=== PATIENT | female | born 2000 | race Caucasian/White ===

== ENCOUNTER 2022-02-11 04:18 | Inpatient (IN) | payer OTHER, SELFPAY ==
[2022-02-11] VITALS (17 sets, daily range): BP systolic 104–127; BP diastolic 47–79; PULSE 73–203; RESP 16; TEMP 36.4–37.2; O2SAT 82–99; BMI 29.9
[2022-02-11] MEDS: Lactated Ringers 1,000 ML 50 ML IV (06:00)
[2022-02-11 06:16] LABS: Bacteria 0 SEEN /hpf (None Seen); Mucous, Urine 0 SEEN /hpf (<or=2+); Red Blood Cells-Urine 0 SEEN /hpf (0-5); Squamous Epithelial Cells - UA 0 SEEN /hpf (5-10); White Blood Cells 0 SEEN /hpf (0-5)
[2022-02-11 06:19] LABS: Color, Urine Yellow (Yellow); Glucose, Dipstick Normal (Normal); Ketone-Dipstick Negative (Negative); Leukocyte Esterase-Dipstick Negative /ul (Negative); Nitrite-Dipstick Negative (Negative); Occult Blood-Urine 250 /ul (Negative); Protein-Dipstick 15 mg/dl (Negative); Specific Gravity, Urine 1.015 (1.002-1.030); Urine Bilirubin Dipstick Negative (Negative); Urine Clarity Clear (Clear); Urine Urobilinogen Normal (Normal)
[2022-02-11 06:21] LABS: Absolute Lymphocyte Count 2.03 X10^3/uL (0.83-4.51); Absolute Neutrophil Count 10.1 X10^3/uL (2.0-7.7); Basophil# 0.04 X10^3/uL; Basophil% 0.3 % (0-1); Eosinophil# 0.11 X10^3/uL; Eosinophils% 0.8 % (0-5); Hematocrit 38.1 % (37-47); Hemoglobin 13.1 g/dL (12.0-15.0); Lymphocyte # 2.03 X10^3/ul (0.83-4.51); Lymphocyte % 15.4 % (19-41); Mean Corp Hgb Conc 34.4 g/dL (32-36); Mean Corpuscular Hgb 30.8 pg (27.0-32.0); Mean Corpuscular Volume 89.6 fL (81-99); Mean Platelet Vol. 10.4 fl (6.2-12.0); Monocyte# 0.81 X10^3/uL; Monocyte% 6.1 % (0-10); NRBC Flagged by Analyzer 0 % (0-5); Neutrophil # 10.12 X10^3/uL (2.7-7.7); Neutrophil % 76.8 % (47-70); Platelet Count 245 K/mm3 (150-450); RBC Distribution Width CV 12.5 % (11.6-14.6); RBC Distribution Width SD 41.3 fl (35.1-43.9); Red Blood Count 4.25 M/mm3 (4.2-5.4); White Blood Count 13.2 K/mm3 (4.4-11.0)
[2022-02-11 06:30] LABS: Bedside Glucose 88 mg/dL (74-106)
[2022-02-11] MEDS: Oxytocin 15 Units/NS 250ml 15 UNITS/250 ML IV.SOLN 2 UNITS IV (06:30)
[2022-02-11 06:38] LABS: Amphetamine Urine VISTA NEGATIVE (<1000 ng/mL); Barbiturate Urine VISTA NEGATIVE (< 200 ng/mL); Benzodiazepine Urine VISTA NEGATIVE (< 200 ng/mL); Cocaine Urine VISTA NEGATIVE (< 300 ng/mL); Ecstacy Urine VISTA NEGATIVE (< 500 ng/mL); Methadone Urine VISTA NEGATIVE (< 300 ng/mL); PCP Urine VISTA NEGATIVE (< 25 ng/mL); THC Urine VISTA NEGATIVE (< 50 ng/mL); Vista UDS pH Range 7
--- NOTE | 2022-02-11 08:00 | PCM.HP.BLA ---
History and Physical Date of Admission: 02/11/22 Chief complaint: Contractions History present illness: 21-year-old G1, P0 at 40 weeks and 1 day with ARELY 02/10/2022 by LMP arrives from [facility] with contractions and variable decelerations. Patient uncomfortable with contractions. Denies headache, vision change, chest pain, shortness of breath, nausea vomit, right upper quadrant pain. is complicated by IUGR EFW 2135 g at 36 weeks less than the 10th percentile (no specific percentile given) AC less than 2.3 percentile, declines GBS, declined 1 hour GTT Obstetrical history: G1: Current Past medical history: None Medications: None Past surgical history: None Allergies: No known drug allergies Family history: History of cystic fibrosis with cousins Social history: Denies smoking, alcohol use, drug use Review of systems: Besides above pertinent positives a full review of systems was performed and found to be negative Physical exam: Vitals: Blood pressure 118/72 pulse 73 SPO2 98% on room air General: Normal-appearing no acute distress HEENT: Normocephalic/atraumatic cervical lymphadenopathy Cardiac/respiratory: No use of accessory muscles, nonlabored breathing Abdomen: Soft, nontender, gravid Extremities: No peripheral edema normal peripheral pulses Psych: Normal affect and demeanor nonpressured speech Labs: White blood cell count 13.2 hemoglobin 13.1 hematocrit 38.1% platelets 245 urine drug screen negative blood type a positive antibody negative. One Touch blood sugar 88 Assessment plan: 21-year-old G1, P0 40 weeks and 1 day from [facility] with IUGR less than the 3rd percentile arrived to [facility] with contractions noted to have variable decelerations and was transferred here. With IUGR less than the 3rd percentile induction should have pursued at 37 weeks. On arrival called by nursing instructed to monitor heart rate tracing and start Pitocin when possible to pursue induction as patient has 1 cm at [facility] since 02/10/22. On arrival status post nursing check patient now 5 cm. GBS unknown, for prophylactic penicillin. Educated patient on heart rate tracing, discussed AROM and IUPC with amnioinfusion. At this time patient wishes to continue hands-off approach. Educated patient on risk benefits alternatives. Patient to try nitrous oxide, very uncomfortable with contractions. If unimproved will then consider AROM and IUPC. All questions answered
[2022-02-11] MEDS: Methylergonovine 0.2 MG/ML Ampul IM (09:03)
--- NOTE | 2022-02-11 09:11 | EX.PCM.OBRPT ---
Vaginal Delivery Findings Description of Procedure: Called by nursing, precipitous delivery arrived with baby in warmer. Placenta delivered via cord traction and fundal massage. IV oxytocin initiated to facilitate uterine contractions. Prophylactic Methergine IM given for quick and second stage. No lacerations noted. EBL 250 cc Apgars 8/9
[2022-02-11 10:01] LABS: HIV - WCH Non-Reactive (Nonreactive); Hepatitis C Antibody Non-Reactive (Nonreactive)
[2022-02-11] MEDS: 0.9% Saline Lock 10 ML Syringe IV (10:20)
[2022-02-12 00:09] VITALS: BP 107/54; PULSE 94; RESP 16; TEMP 36.9; O2SAT 97
[2022-02-12 04:45] VITALS: BP 103/54; PULSE 93; RESP 16; TEMP 36.8; O2SAT 97
[2022-02-12 07:40] VITALS: BP 112/57; PULSE 75; RESP 18; TEMP 36.6; O2SAT 96
--- NOTE | 2022-02-12 07:44 | PN.OBGYN_ITS ---
Subjective Subjective No overnight complaints Objective Data Objective Data Vital Signs: Vital Signs Temp Pulse Resp BP Pulse Ox O2 Del Method 98.3 F 93 16 103/54 L 97 Room Air 02/12/22 04:45 02/12/22 04:45 02/12/22 04:45 02/12/22 04:45 02/12/22 04:45 02/12/22 04:45 Oxygen Delivery Method Room Air Weight: 158 lb 4.67 oz Body Mass Index (BMI) 29.9 Intake & Output: Intake and Output for Last 24 Hours 02/10/22 02/11/22 02/12/22 23:59 23:59 23:59 Intake Total 386.77 / 386.77 Output Total 1700 / 1700 Balance -1313.23 / -1313.23 Lab / Micro Data Result Diagrams: 02/11/22 06:00 Labs: Laboratory Results - last 24 hr 02/11/22 06:00: Hepatitis C Antibody Non-Reactive, HIV 1&2 Antibody Non-Reactive 02/11/22 06:00: Blood Type A POSITIVE, Antibody Screen NEGATIVE Physical Exam Const alert, oriented x3, no apparent distress, average body habitus, healthy appearing and well nourished HEENT normocephalic and moist oral mucous membranes Eyes PERRL Neck full ROM Resp normal respiratory effort, no retractions and no use of accessory muscles GI GI Narrative: Soft, nontender, uterus firm and below umbilicus Extremity normal to inspection, full ROM and no clubbing, cyanosis or edema Neuro moves all extremities and no focal motor deficits Psych mental status grossly normal, affect normal, speech normal and activity/motor behavior normal Assessment & Plan (1) Vaginal delivery: PLAN: day 1. Breast-feeding, to see. Pain well controlled. Baby SGA, director of sales marketing to see. Likely home tomorrow
[2022-02-12 13:50] VITALS: BP 99/52; PULSE 94; RESP 16; TEMP 36.4; O2SAT 96
[2022-02-12 20:15] VITALS: BP 105/55; PULSE 90; RESP 16; TEMP 37.1; O2SAT 96
[2022-02-13 02:25] VITALS: BP 105/52; PULSE 81; RESP 16; TEMP 36.6; O2SAT 97
--- NOTE | 2022-02-13 08:48 | PCM.DC.BLA ---
Discharge Summary Date of Admission: 02/11/22 Date of Discharge: 02/13/22 Summary: Patient previously seen by torpedo specialist arrived no doc on care with known IUGR at term with nonreassuring heart tones. Arrived to [facility] and subsequently delivered vaginally on 02/11/2022. SGA baby. Routine recovery. Discharge home on 02/13/2022 Meaningful Use Info Meaningful Use Diagnoses (Choose all that apply): None applicable Discharge Plan Admission Admit Date/Time: 02/11/22 04:18 Primary Reason for Your Visit: Nonreassuring heart tones Attending Provider: Dylan Sethi Primary Care Provider: Care Physician,Kelsea Primary Instructions Additional Instructions / Restrictions: Regular diet, weightbearing as tolerated, okay to shower. No intercourse for 4 to 6 weeks. Call if fevers, chills, chest pain, shortness of breath. Follow-up 4 to 6 weeks Discharge Orders/Prescriptions Prescriptions: No Action 1 mg Tablet 1 tab PO DAILY Referrals / Follow Up: Care Physician,No Primary [Primary Care Provider] - Disposition Disposition (needs filled in before D/C Order can be placed): Home, Self Care
--- NOTE | 2022-02-13 08:49 | PCM.PN.OB ---
Subjective Subjective No overnight complaints Objective Data Objective Data Vital Signs: Vital Signs Temp Pulse Resp BP Pulse Ox O2 Del Method 97.9 F 81 16 105/52 L 97 Room Air 02/13/22 02:25 02/13/22 02:25 02/13/22 02:25 02/13/22 02:25 02/13/22 02:25 02/13/22 02:25 Oxygen Delivery Method Room Air Weight: 158 lb 4.67 oz Body Mass Index (BMI) 29.9 Intake & Output: Intake and Output for Last 24 Hours 02/11/22 02/12/22 02/13/22 23:59 23:59 23:59 Intake Total 386.77 / 386.77 Output Total 1700 / 1700 Balance -1313.23 / -1313.23 Lab / Micro Data Result Diagrams: 02/11/22 06:00 Physical Exam Const alert, oriented x3, no apparent distress, average body habitus, healthy appearing and well nourished HEENT normocephalic and moist oral mucous membranes Eyes PERRL Resp normal respiratory effort, no retractions and no use of accessory muscles GI GI Narrative: Soft, nontender, uterus firm and below umbilicus Extremity normal to inspection, full ROM and no clubbing, cyanosis or edema Neuro moves all extremities and no focal motor deficits Psych mental status grossly normal, affect normal, speech normal and activity/motor behavior normal Assessment & Plan (1) Vaginal delivery: PLAN: day 2 status post vaginal delivery of SGA baby. Breast-feeding. Pain well controlled. Okay to discharge home today if okay with signal timer
[2022-02-13 09:00] VITALS: BP 101/58; PULSE 76; RESP 16; TEMP 36.4; TEMP 36.8; O2SAT 95
== END 2022-02-13 10:44 | disposition home or self-care (01) | DRG 807 ==
PROVIDERS: Admitting Provider Obstetrics & Gynecology; Visit Provider Obstetrics & Gynecology
DX: O76 Abnormality in fetal heart rate and rhythm complicating labor and delivery (principal); Z37.0 Single live birth; O36.5930 Maternal care for other known or suspected poor fetal growth, third trimester, not applicable or unspecified; O62.3 Precipitate labor; Z3A.40 40 weeks gestation of pregnancy
CPT/HCPCS: 59025; 59050; 80307; 81001; 82962; 85025; 86703; 86803; 86850; 86900; 86901; 99221; J7120; A4216; G0378